=== PATIENT | female | born 1995 | race African-American/Black ===

== ENCOUNTER 2020-05-14 10:01 | Observation (INO) | payer MEDICAID ==
[~2020-05-14] VITALS: Ht 157.5 cm; Wt 65.8 kg
[2020-05-14] MEDS ORDERED: FERR-71 MT (10:36)
[2020-05-14] MEDS ORDERED: PREN-55 MT (10:36)
== END 2020-05-14 13:15 | disposition home or self-care (01) ==
LOC: 8 EST LDRP 10:01
PROVIDERS: ADMIT Obstetrics & Gynecology; ATTEND Obstetrics & Gynecology
DX: O62.9 Abnormality of forces of labor, unspecified (principal); Z3A.37 37 weeks gestation of pregnancy
CPT/HCPCS: 59025; 76815; 76818; G0378; 99281